=== PATIENT | male | born 1955 | race Caucasian/White ===

== ENCOUNTER 2020-06-02 12:42 | Emergency (ER) | payer MEDICARE, SELFPAY ==
[2020-06-02 14:01] VITALS: BP 116/90; PULSE 113; RESP 18; TEMP 36.8; O2SAT 97
--- NOTE | 2020-06-02 14:38 | XRR_ITS ---
PROCEDURE INFORMATION: Exam: XR Chest, 1 View Exam date and time: 06/02/2020 3:10 PM Age: 64 years old Clinical indication: Cough and dyspnea; Additional info: Dyspnea/cough TECHNIQUE: Imaging protocol: XR of the chest Views: 1 view. COMPARISON: No relevant prior studies available. FINDINGS: Lungs: Unremarkable. No consolidation. Pleural space: Unremarkable. No pleural effusion. No pneumothorax. Heart/Mediastinum: Unremarkable. No cardiomegaly. Bones/joints: Unremarkable. XR/XR chest 1V portable [id number] IMPRESSION: No acute findings.
--- NOTE | 2020-06-02 14:38 | CTR_ITS ---
PROCEDURE INFORMATION: Exam: CT Abdomen And Pelvis With Contrast Exam date and time: 06/02/2020 3:10 PM Age: 64 years old Clinical indication: Abdominal pain; Localized; Right upper quadrant (ruq); Prior surgery; Surgery date: 6+ months; Surgery type: Gb, ivc filter; Patient HX: Recent dx liver CA C/O ruq pain and abd swelling; Additional info: Abd pain TECHNIQUE: Imaging protocol: Computed tomography of the abdomen and pelvis with intravenous contrast. Radiation optimization: All CT scans at this facility use at least one of these dose optimization techniques: automated exposure control; mA and/or kV adjustment per patient size (includes targeted exams where dose is matched to clinical indication); or iterative reconstruction. Contrast material: OMNI 300; Contrast volume: 95 ml; Contrast route: INTRAVENOUS (IV); COMPARISON: No relevant prior studies available. RADIATION DOSE METRICS: Total DLP (mGy-cm): 615.89 FINDINGS: Liver: There is a large 7 x 11 cm size mass in the medial segment left lobe of the liver. There are low-density areas within the mass presumably representing areas of necrosis and this likely represents the patient's known renal cell carcinoma. Liver has nodular contours consistent with cirrhosis. There are other multiple wedge-shaped areas of hypodensity in the right lobe of the liver of uncertain significance, but which could represent areas of infarct, scarring, or additional tumor. There may also be a 3 cm sized slightly hypoenhancing mass in the superior aspect of the left lobe of the liver such as an image 17. Comparison with patient's prior examinations is suggested. Gallbladder and bile ducts: There has been a cholecystectomy. Pancreas: The pancreas is normal. Spleen: The spleen is normal. Adrenals: There is a 3 x 4 cm sized right adrenal mass and a 2.5 x 3.5 cm sized left adrenal mass. These are worrisome for metastatic lesions. Comparison with prior CT examinations is suggested. If there are no previous, recommend adrenal CT. May consider chemical shift MRI (CS-MR). Kidneys and ureters: There is a simple cyst in the left kidney. The right kidney is normal. Stomach and bowel: There is severe mucosal thickening of the entire colon from the cecum through the rectum. This represents nonspecific colitis and differential considerations include infectious and ischemic colitis . Appendix: A normal appendix is identified. Intraperitoneal space: There is a large amount of free intraperitoneal fluid present. Vasculature: An inferior vena cava filter lies in appropriate position. The aorta demonstrates moderate atherosclerotic calcification. There is no evidence of an abdominal aortic aneurysm. There are prominent veins surrounding the gastric cardia and distal esophagus consistent esophageal varices. There is thrombus in the left branch of the portal vein and poor filling of the right branch which may be also partly thrombosed. Lymph nodes: Unremarkable. No enlarged lymph nodes. Bladder: Unremarkable as visualized. Reproductive: Unremarkable as visualized. Bones/joints: Unremarkable. No acute fracture. Soft tissues: Unremarkable. CT/CT abdomen pelvis w con* [id number] IMPRESSION: 1. Grossly abnormal liver with evidence of tumor consistent with a history of liver cancer. 2. Portal vein thrombosis. 3. Severe colitis, differential considerations include ischemic colitis. 4. Ascites 5. Large bilateral adrenal masses worrisome for metastasis. 6. Esophageal varices COMMENTS: Consistent with the [employer]'s Incidental Findings Committee white paper (J Am Niraj Radiol 2018): Any incidental renal lesion less than 1.0 cm or classified as too small to characterize, or any incidental cystic renal lesion characterized as simple-appearing, is likely benign. No follow-up imaging is recommended for these lesions per consensus recommendations based on imaging criteria. Radiation Dose CTDIVOL = (mGy): DLP = 615.89 (mGy-cm)
[2020-06-02 15:24] VITALS: BP 116/86; PULSE 87; RESP 18; O2SAT 97
[2020-06-02 15:25] LABS: Basophils # 0.1 10^3/uL (0.0-0.1); Eosinophils # 1.2 10^3/uL (0.0-0.8); Eosinophils % 9.9 %; Hematocrit 27.1 % (42.0-52.0); Hemoglobin 9.1 g/dL (11.7-16.6); Lymphocytes # 2.3 10^3/uL (0.8-4.8); Lymphocytes % 18.5 %; Mean Corpuscular HGB Conc 33.6 g/dL (30.0-36.0); Mean Corpuscular Hemoglobin 31.4 pg (28.0-34.0); Mean Corpuscular Volume 93.4 fL (80-94); Mean Platelet Volume 11.5 fL (7.4-10.4); Monocytes # 0.6 10^3/uL (0.2-0.9); Neutrophils # 8.13 10^3/uL (1.8-7.7); Neutrophils % 65.3 %; Nucleated Red Blood Cells % 0 %; Platelet Count 302 10^3/cmm (130-400); White Blood Count 12.5 10^3/uL (4.0-10.0)
[2020-06-02 15:35] LABS: INR 1.75 (0.8-1.2)
[2020-06-02 15:36] LABS: Partial Thromboplastin Time 43.3 SECONDS (23.9-36.7)
[2020-06-02 15:45] LABS: Lactic Sepsis W/Reflex 2.6 mmol/L (0.5-2.2)
[2020-06-02 15:46] LABS: Alanine Aminotransferase 206 U/L (0-41); Albumin Level 3.4 g/dL (3.5-5.2); Alkaline Phosphatase 463 IU/L (40-130); Anion Gap 14.9 (5-19); Aspartate Amino Transferase 424 U/L (0-40); Blood Urea Nitrogen 8 mg/dL (8-23); Calcium 9.2 mg/dL (8.5-10.5); Carbon Dioxide 25 mmol/L (22-29); Chloride 97 mmol/L (98-107); Globulin 4.6 g/dL (1.3-4.6); Glomerular Filtration Rate 167.9 mL/min (90-130); Glucose 105 mg/dL (65-115); Lipase 34 U/L (13-60); Osmolality Calculated 270 mOsm/kg (285-295); Potassium 4.9 mmol/L (3.5-5.1); Sodium 132 mmol/L (136-145); Total Bilirubin 5.4 mg/dL (0.15-1.2)
[2020-06-02 15:47] LABS: Ammonia 74 umol/L (16-60)
--- NOTE | 2020-06-02 16:00 | W.ED.ABDPA2 ---
Documented by User: Ed Hoang DO 06/03/20 13:15 HPI - Abdominal Pain General: Chief Complaint: Abdominal Pain Stated Complaint: cancer pt, in pain, [place] Time Seen by Provider: 06/02/20 14:02 History of Present Illness: HPI narrative: 64-year-old male who has a known history of hepatic cancer. Patient does not speak Czech history obtained through the system support analyst. He has previously had multiple labs and imaging done in [place] he has the results available here describes a hepatic cancer that extends into the portal vein there is thrombosis there he also tells me he was on Coumadin at one time and it was stopped recently was advised take aspirin daily as abdomen feels full and he is little bit of right upper quadrant abdominal pain today. He denies any hematochezia hematemesis coffee-ground emesis he is not previously had any GI bleed. He has not seen a doctor in some time he does have a chemotherapy pill that he has been taking MD elicited complaint: abdominal pain Pertinent past history: other (hepatocellular carcinoma) Onset (ago): month(s) Pain Consistency: intermittent Location: RUQ Severity: moderate Quality: cramping Radiation: RUQ Migration to: no migration Exacerbating factors: nothing Relieving factors: nothing Context: history of similar episodes Associated Symptoms: Reports anorexia, bloating, GI cramping, nausea and poor appetite; Denies coffee ground emesis, diarrhea, dyspepsia, fever(s), hematochezia, hematuria, hematemesis, loose stools, melena and vomiting Review of Systems Const: Denies: fever(s) ENMT: Denies: throat pain, ear or mastoid pain, nasal discharge or nasal congestion Card: Denies: chest pain, edema, dyspnea on exertion or orthopnea Resp: Denies: dyspnea, productive cough or non-productive cough GI: Reports: nausea, bloating and GI cramping; Denies: vomiting, hematemesis, coffee ground emesis, diarrhea, hematochezia or melena : Denies: hematuria Skin/Breast: Denies: rash or pruritus PFS ED PFSH: Medical History (Updated 06/03/20 @ 13:14 by Ed Hoang DO) CVA (cerebral vascular accident) Diabetes mellitus Tristan filter in place Hepatocellular carcinoma Hypertension Peripheral artery disease Surgical History (Updated 06/02/20 @ 16:09 by Ed Hoang DO) S/P cholecystectomy 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 Right iliac stenting Social History (Updated 06/02/20 @ 16:10 by Ed Hoang DO) Smoking and tobacco status: never smoked Alcohol intake: never Physical Exam Const: COMMON NORMALS: no acute distress GENERAL APPEARANCE: cooperative and comfortable ORIENTATION/CONSCIOUSNESS: Yes awake, Yes oriented to person, Yes oriented to place and Yes oriented to time HENMT: COMMON NORMALS: normocephalic, atraumatic and hearing grossly normal bilaterally HEAD & SCALP: normocephalic and atraumatic Eye: COMMON NORMALS: Equal, round and reactive pupils present, EOMs intact bilaterally, conjunctivae normal and no scleral icterus CONJUNCTIVA: Yes conjunctivae normal PUPIL: Yes Equal, round and reactive pupils present Neck/C-Spine: COMMON NORMALS: full ROM, no lymphadenopathy, supple and no JVD Lymph: LYMPHATIC: no lymphadenopathy noted and no lymphedema noted Resp: COMMON NORMALS: normal respiratory effort, No retractions, No use of accessory muscles and clear to auscultation bilaterally AUSCULTATION: clear to auscultation bilaterally Cardio: COMMON NORMALS: no JVD, regular rate, regular rhythm and No murmurs present (Cardio) RATE: regular rate RHYTHM: regular rhythm GI: COMMON NORMALS: Soft to palpation and No hepatosplenomegaly present AUSCULTATION: Yes normoactive bowel sounds PALPATION: Yes Soft to palpation, No Tenderness to palpation present (GI), No Guarding due to palpation present (GI) and Yes No hepatosplenomegaly present Extremity: COMMON NORMALS: normal to inspection, capillary refill normal, no clubbing, cyanosis or edema, no calf tenderness and no pedal edema Neuro: SENSORIUM/ORIENTATION: Yes oriented to person, Yes oriented to place and Yes oriented to time Skin: COMMON NORMALS: no rashes or lesions noted GENERAL SKIN EXAM: no rashes or lesions noted Course Vital Signs: Vital signs: Vital Signs Temperature 98.2 F 06/02/20 18:29 Pulse Rate 105 H 06/02/20 18:29 Respiratory Rate 16 06/02/20 18:29 Blood Pressure 120/86 06/02/20 18:29 Pulse Oximetry 96 06/02/20 18:29 MDM - Abdominal Pain MDM Narrative: Medical decision making narrative: Does have a little colitis we will go ahead and start him on Cipro and Flagyl. At this point I think he can still be treated as an outpatient. Clear liquid diet for 48 hours. We will have asked case management to get him set up with oncology as soon as possible will also need a primary care doctor as any worsening or changes symptoms return reviewed with him he does have extensive hepatocellular carcinoma he still has a portal vein thrombosis he also have esophageal varices and there appears to be extension to the renal glands this tumor is quite advanced and likely will require referral to a tertiary care center for review of treatment options. I did ask him to stop his hydrochlorothiazide and his ARB since his blood pressure is borderline low here in the emergency room today. I did teressa the bottles for the patient of the hydrochlorothiazide and the Iser Olsen that they should stop. Discussed final diagnosis and discharge instructions with the system support analyst. Lab Data: Labs: Lab Results 06/02/20 06/02/20 06/02/20 Range/Units 15:16 15:16 15:16 WBC 12.5 H (4.0-10.0) 10^3/ uL RBC 2.90 L (4.1-5.3) 10^6/u L Hgb 9.1 L (11.7-16.6) g/dL Hct 27.1 L (42.0-52.0) % MCV 93.4 (80-94) fL MCH 31.4 (28.0-34.0) pg MCHC 33.6 (30.0-36.0) g/dL RDW 20.0 H (12.1-15.1) % Plt Count 302 (130-400) 10^3/c mm MPV 11.5 H (7.4-10.4) fL Neut % (Auto) 65.3 % Lymph % (Auto) 18.5 % [place] % (Auto) 5.0 % Eos % (Auto) 9.9 % Baso % (Auto) 1.0 % Neut # (Auto) 8.13 H (1.8-7.7) 10^3/u L Lymph # (Auto) 2.3 (0.8-4.8) 10^3/u L [place] # (Auto) 0.6 (0.2-0.9) 10^3/u L Eos # (Auto) 1.2 H (0.0-0.8) 10^3/u L Baso # (Auto) 0.1 (0.0-0.1) 10^3/u L Nucleated RBC % (a uto) 0 % Nucleated RBCs # 0.0 /100WBC PT 21.10 H (10.5-13.3) SECO NDS INR 1.75 H (0.8-1.2) APTT 43.3 H (23.9-36.7) SECO NDS Sodium (136-145) mmol/L Potassium (3.5-5.1) mmol/L Chloride (98-107) mmol/L Carbon Dioxide (22-29) mmol/L Anion Gap (5-19) BUN (8-23) mg/dL Creatinine (0.7-1.2) mg/dL GFR Calculation (90-130) mL/min Glucose (65-115) mg/dL Calculated Osmolal ity (285-295) mOsm/k g Lactic Acid 2.6 H (0.5-2.2) mmol/L Calcium (8.5-10.5) mg/dL Total Bilirubin (0.15-1.2) mg/dL AST (0-40) U/L ALT (0-41) U/L Alkaline Phosphata se (40-130) IU/L Ammonia (16-60) umol/L Total Protein (6.6-8.7) g/dL Albumin (3.5-5.2) g/dL Globulin (1.3-4.6) g/dL Lipase (13-60) U/L Urine Color (Yellow) Urine Appearance (CLEAR) Urine pH (5-7) Ur Specific Gravit y (1.005-1.030) Urine Protein (Negative) Urine Glucose (UA) (Normal) Urine Ketones (Negative) Urine Blood (Negative) Urine Nitrate (Negative) Urine Bilirubin (NEGATIVE) Urine Urobilinogen (Negative) mg/dL Ur Leukocyte Danni ase (Negative) Urine RBC (0-2) /hpf Urine WBC (0-5) /hpf Ur Squamous Epith Cells (0-5) Amorphous Sediment Urine Bacteria (NONE) 06/02/20 06/02/20 06/02/20 Range/Units 15:16 15:16 15:27 WBC (4.0-10.0) 10^3/ uL RBC (4.1-5.3) 10^6/u L Hgb (11.7-16.6) g/dL Hct (42.0-52.0) % MCV (80-94) fL MCH (28.0-34.0) pg MCHC (30.0-36.0) g/dL RDW (12.1-15.1) % Plt Count (130-400) 10^3/c mm MPV (7.4-10.4) fL Neut % (Auto) % Lymph % (Auto) % [place] % (Auto) % Eos % (Auto) % Baso % (Auto) % Neut # (Auto) (1.8-7.7) 10^3/u L Lymph # (Auto) (0.8-4.8) 10^3/u L [place] # (Auto) (0.2-0.9) 10^3/u L Eos # (Auto) (0.0-0.8) 10^3/u L Baso # (Auto) (0.0-0.1) 10^3/u L Nucleated RBC % (a uto) % Nucleated RBCs # /100WBC PT (10.5-13.3) SECO NDS INR (0.8-1.2) APTT (23.9-36.7) SECO NDS Sodium 132 L (136-145) mmol/L Potassium 4.9 (3.5-5.1) mmol/L Chloride 97 L (98-107) mmol/L Carbon Dioxide 25 (22-29) mmol/L Anion Gap 14.9 (5-19) BUN 8 (8-23) mg/dL Creatinine 0.5 L (0.7-1.2) mg/dL GFR Calculation 167.9 H (90-130) mL/min Glucose 105 (65-115) mg/dL Calculated Osmolal ity 270 L (285-295) mOsm/k g Lactic Acid (0.5-2.2) mmol/L Calcium 9.2 (8.5-10.5) mg/dL Total Bilirubin 5.4 H (0.15-1.2) mg/dL AST 424 H (0-40) U/L ALT 206 H (0-41) U/L Alkaline Phosphata se 463 H (40-130) IU/L Ammonia 74 H (16-60) umol/L Total Protein 8.0 (6.6-8.7) g/dL Albumin 3.4 L (3.5-5.2) g/dL Globulin 4.6 (1.3-4.6) g/dL Lipase 34 (13-60) U/L Urine Color Yellow (Yellow) Urine Appearance Clear (CLEAR) Urine pH 5 (5-7) Ur Specific Gravit y 1.020 (1.005-1.030) Urine Protein Trace (Negative) Urine Glucose (UA) Norm (Normal) Urine Ketones 1+ H (Negative) Urine Blood Neg (Negative) Urine Nitrate Negative (Negative) Urine Bilirubin 2+ H (NEGATIVE) Urine Urobilinogen 8 H (Negative) mg/dL Ur Leukocyte Danni ase Negative (Negative) Urine RBC None (0-2) /hpf Urine WBC 0-4 H (0-5) /hpf Ur Squamous Epith Cells 0-4 H (0-5) Amorphous Sediment 2+ Urine Bacteria 1+ H (NONE) Discharge Plan Discharge Patient Disposition: Home Clinical Impression: Hepatocellular carcinoma, 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, Colitis, History of hypertension, Hypotension Condition: Stable Prescriptions: New Zofran 4 mg tablet 4 mg PO Q6H PRN (Reason: nausea and vomiting) Qty: 20 RF: 0 ciprofloxacin HCl 500 mg tablet 500 mg PO Q12H 10 Days Qty: 20 RF: 0 metronidazole 500 mg tablet 500 mg PO BID 10 Days Qty: 20 RF: 0 Discontinued irbesartan 150 mg Tablet 150 mg PO DAILY RF: 0 hydrochlorothiazide 12.5 mg Tablet 12.5 mg PO DAILY RF: 0 No Action aspirin 325 mg Tablet 325 mg PO DAILY RF: 0 Zocor 10 mg Tablet 10 mg PO DAILY RF: 0 gabapentin 300 mg Capsule 300 mg PO BID RF: 0 mirtazapine 15 mg Tablet 15 mg PO BEDTIME RF: 0 oxycodone 5 mg Tablet 5 mg PO QID PRN (Reason: Pain) RF: 0 Nexavar 200 mg Tablet 400 mg PO BID RF: 0 Protonix 40 mg Tablet,Delayed Release (Dr/Ec) 40 mg PO DAILY RF: 0 glipizide-metformin 5-500 mg Tablet 1 tab PO BID RF: 0 Some Kind Of Vitamin See Rx Instructions .ROUTE .COMPLEX RF: 0 Discharge Orders: Discharge Order (Routine); Ordered 06/02/20 Ordered By: Ed Hoang Discharge Diet: Clear Liquid Discharge Activity: Limit activity as instructed Activity Restrictions/Additional Instructions: Clear liquid diet for 48 hours. Case management will call with referral to oncology and help you set up a primary care physician. Interventions: ED Discharge Assessment Last Done: 06/02/20 18:29 ED Charges Last Done: 06/02/20 18:29 Discharge Date/Time: 06/02/20 18:29 Print Language: Armenian Coding Level of Care Code ED Traffic Incident Management Manager for Chg Fwd Exam Comprehensive Documented by User: Jovi Medina DO 06/03/20 05:50 HPI - Abdominal Pain General: Chief Complaint: Abdominal Pain Stated Complaint: cancer pt, in [place], [place] Time Seen by Provider: 06/02/20 14:02 [facility] ED PFSH: Medical History (Updated 06/03/20 @ 13:14 by Ed Hoang DO) CVA (cerebral vascular accident) Diabetes mellitus [place] filter in place Hepatocellular carcinoma Hypertension Peripheral artery disease Surgical History (Updated 06/02/20 @ 16:09 by Ed Hoang DO) S/P cholecystectomy 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 Right iliac stenting Social History (Updated 06/02/20 @ 16:10 by Ed Hoang DO) Smoking and tobacco status: never smoked Alcohol intake: never Course Vital Signs: Vital signs: Vital Signs Temperature 98.2 F 06/02/20 18:29 Pulse Rate 105 H 06/02/20 18:29 Respiratory Rate 16 06/02/20 18:29 Blood Pressure 120/86 06/02/20 18:29 Pulse Oximetry 96 06/02/20 18:29 MDM - Abdominal Pain Lab Data: Labs: Lab Results 07/24/20 07/24/20 07/24/20 Range/Units 15:16 15:16 15:16 WBC 12.5 H (4.0-10.0) 10^3/ uL RBC 2.90 L (4.1-5.3) 10^6/u L Hgb 9.1 L (11.7-16.6) g/dL Hct 27.1 L (42.0-52.0) % MCV 93.4 (80-94) fL MCH 31.4 (28.0-34.0) pg MCHC 33.6 (30.0-36.0) g/dL RDW 20.0 H (12.1-15.1) % Plt Count 302 (130-400) 10^3/c mm MPV 11.5 H (7.4-10.4) fL Neut % (Auto) 65.3 % Lymph % (Auto) 18.5 % [place] % (Auto) 5.0 % Eos % (Auto) 9.9 % Baso % (Auto) 1.0 % Neut # (Auto) 8.13 H (1.8-7.7) 10^3/u L Lymph # (Auto) 2.3 (0.8-4.8) 10^3/u L [place] # (Auto) 0.6 (0.2-0.9) 10^3/u L Eos # (Auto) 1.2 H (0.0-0.8) 10^3/u L Baso # (Auto) 0.1 (0.0-0.1) 10^3/u L Nucleated RBC % (a uto) 0 % Nucleated RBCs # 0.0 /100WBC PT 21.10 H (10.5-13.3) SECO NDS INR 1.75 H (0.8-1.2) APTT 43.3 H (23.9-36.7) SECO NDS Sodium (136-145) mmol/L Potassium (3.5-5.1) mmol/L Chloride (98-107) mmol/L Carbon Dioxide (22-29) mmol/L Anion Gap (5-19) BUN (8-23) mg/dL Creatinine (0.7-1.2) mg/dL GFR Calculation (90-130) mL/min Glucose (65-115) mg/dL Calculated Osmolal ity (285-295) mOsm/k g Lactic Acid 2.6 H (0.5-2.2) mmol/L Calcium (8.5-10.5) mg/dL Total Bilirubin (0.15-1.2) mg/dL AST (0-40) U/L ALT (0-41) U/L Alkaline Phosphata se (40-130) IU/L Ammonia (16-60) umol/L Total Protein (6.6-8.7) g/dL Albumin (3.5-5.2) g/dL Globulin (1.3-4.6) g/dL Lipase (13-60) U/L Urine Color (Yellow) Urine Appearance (CLEAR) Urine pH (5-7) Ur Specific Gravit y (1.005-1.030) Urine Protein (Negative) Urine Glucose (UA) (Normal) Urine Ketones (Negative) Urine Blood (Negative) Urine Nitrate (Negative) Urine Bilirubin (NEGATIVE) Urine Urobilinogen (Negative) mg/dL Ur Leukocyte Danni ase (Negative) Urine RBC (0-2) /hpf Urine WBC (0-5) /hpf Ur Squamous Epith Cells (0-5) Amorphous Sediment Urine Bacteria (NONE) 06/02/20 06/02/20 06/02/20 Range/Units 15:16 15:16 15:27 WBC (4.0-10.0) 10^3/ uL RBC (4.1-5.3) 10^6/u L Hgb (11.7-16.6) g/dL Hct (42.0-52.0) % MCV (80-94) fL MCH (28.0-34.0) pg MCHC (30.0-36.0) g/dL RDW (12.1-15.1) % Plt Count (130-400) 10^3/c mm MPV (7.4-10.4) fL Neut % (Auto) % Lymph % (Auto) % [place] % (Auto) % Eos % (Auto) % Baso % (Auto) % Neut # (Auto) (1.8-7.7) 10^3/u L Lymph # (Auto) (0.8-4.8) 10^3/u L [place] # (Auto) (0.2-0.9) 10^3/u L Eos # (Auto) (0.0-0.8) 10^3/u L Baso # (Auto) (0.0-0.1) 10^3/u L Nucleated RBC % (a uto) % Nucleated RBCs # /100WBC PT (10.5-13.3) SECO NDS INR (0.8-1.2) APTT (23.9-36.7) SECO NDS Sodium 132 L (136-145) mmol/L Potassium 4.9 (3.5-5.1) mmol/L Chloride 97 L (98-107) mmol/L Carbon Dioxide 25 (22-29) mmol/L Anion Gap 14.9 (5-19) BUN 8 (8-23) mg/dL Creatinine 0.5 L (0.7-1.2) mg/dL GFR Calculation 167.9 H (90-130) mL/min Glucose 105 (65-115) mg/dL Calculated Osmolal ity 270 L (285-295) mOsm/k g Lactic Acid (0.5-2.2) mmol/L Calcium 9.2 (8.5-10.5) mg/dL Total Bilirubin 5.4 H (0.15-1.2) mg/dL AST 424 H (0-40) U/L ALT 206 H (0-41) U/L Alkaline Phosphata se 463 H (40-130) IU/L Ammonia 74 H (16-60) umol/L Total Protein 8.0 (6.6-8.7) g/dL Albumin 3.4 L (3.5-5.2) g/dL Globulin 4.6 (1.3-4.6) g/dL Lipase 34 (13-60) U/L Urine Color Yellow (Yellow) Urine Appearance Clear (CLEAR) Urine pH 5 (5-7) Ur Specific Gravit y 1.020 (1.005-1.030) Urine Protein Trace (Negative) Urine Glucose (UA) Norm (Normal) Urine Ketones 1+ H (Negative) Urine Blood Neg (Negative) Urine Nitrate Negative (Negative) Urine Bilirubin 2+ H (NEGATIVE) Urine Urobilinogen 8 H (Negative) mg/dL Ur Leukocyte Danni ase Negative (Negative) Urine RBC None (0-2) /hpf Urine WBC 0-4 H (0-5) /hpf Ur Squamous Epith Cells 0-4 H (0-5) Amorphous Sediment 2+ Urine Bacteria 1+ H (NONE) Discharge Plan Discharge Patient Disposition: Home Clinical Impression: Hepatocellular carcinoma, 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, Colitis, History of hypertension, Hypotension Condition: Stable Prescriptions: New Zofran 4 mg tablet 4 mg PO Q6H PRN (Reason: nausea and vomiting) Qty: 20 RF: 0 ciprofloxacin HCl 500 mg tablet 500 mg PO Q12H 10 Days Qty: 20 RF: 0 metronidazole 500 mg tablet 500 mg PO BID 10 Days Qty: 20 RF: 0 Discontinued irbesartan 150 mg Tablet 150 mg PO DAILY RF: 0 hydrochlorothiazide 12.5 mg Tablet 12.5 mg PO DAILY RF: 0 No Action aspirin 325 mg Tablet 325 mg PO DAILY RF: 0 Zocor 10 mg Tablet 10 mg PO DAILY RF: 0 gabapentin 300 mg Capsule 300 mg PO BID RF: 0 mirtazapine 15 mg Tablet 15 mg PO BEDTIME RF: 0 oxycodone 5 mg Tablet 5 mg PO QID PRN (Reason: Pain) RF: 0 Nexavar 200 mg Tablet 400 mg PO BID RF: 0 Protonix 40 mg Tablet,Delayed Release (Dr/Ec) 40 mg PO DAILY RF: 0 glipizide-metformin 5-500 mg Tablet 1 tab PO BID RF: 0 Some Kind Of Vitamin See Rx Instructions .ROUTE .COMPLEX RF: 0 Discharge Orders: Discharge Order (Routine); Ordered 06/02/20 Ordered By: Ed Hoang Discharge Diet: Clear Liquid Discharge Activity: Limit activity as instructed Activity Restrictions/Additional Instructions: Clear liquid diet for 48 hours. Case management will call with referral to oncology and help you set up a primary care physician. Interventions: ED Discharge Assessment Last Done: 06/02/20 18:29 ED Charges Last Done: 06/02/20 18:29 Discharge Date/Time: 06/02/20 18:29 Print Language: Armenian Coding Level of Care Code ED Traffic Incident Management Manager for Sathya Fwd Exam Comprehensive
[2020-06-02 16:04] LABS: Add Urine Microscopic? YES; Bilirubin Urine 2+ (NEGATIVE); Blood Urine Neg (Negative); Glucose Urine UA Norm (Normal); Ketones Urine 1+ (Negative); Leukocyte Esterase Urine Negative (Negative); Nitrate Urine Negative (Negative); Protein Urine Trace (Negative); Urine Appearance Clear (CLEAR); Urine Color Yellow (Yellow); Urobilinogen Urine 8 mg/dL (Negative); pH Urine 5 (5-7)
[2020-06-02 16:05] LABS: Add Urine Culture? No; Amorphous Sediment Urine 2+; Bacteria Urine 1+; Squamous Epithelial Cell Urine 0-4 (0-5); WBC Urine 0-4 /hpf (0-5)
[2020-06-02] MEDS: iohexol 300 mg/mL 100 mL Btl IV (16:07)
[2020-06-02 17:07] LABS: Reflex Lactate Order REFLEX LACTIC ORDERD
[2020-06-02 18:29] VITALS: BP 120/86; PULSE 105; RESP 16; TEMP 36.8; O2SAT 96
--- NOTE | 2020-06-05 09:14 | PC.SOCIAL ---
Spoke with Derrick by phone regarding referral. She suggests this be sent to [facility] at [phone]. Fax sent with confirmation that this was sent successfully. Oncology will call patient.
--- NOTE | 2020-06-15 14:03 | DCPLANNER ---
manager costing called Sara with oncology, to confirm if an appointment had been scheduled for patient. manager costing spoke with Sara, a follow up appointment had been scheduled for patient for 06.12.20 and patient did attend the appointment.
== END 2020-06-02 18:29 | disposition home or self-care (01) ==
PROVIDERS: Emergency Provider Family Medicine
DX: C22.0 Liver cell carcinoma (principal); C79.70 Secondary malignant neoplasm of unspecified adrenal gland; I10 Essential (primary) hypertension; I95.9 Hypotension, unspecified; Z79.82 Long term (current) use of aspirin; Z86.73 Personal history of transient ischemic attack (TIA), and cerebral infarction without residual deficits; E11.9 Type 2 diabetes mellitus without complications
CPT/HCPCS: 12345; 71045; 74177; 80053; 81001; 81003; 82140; 83605; 83690; 85025; 85610; 85730; 99283; Q9967

== ENCOUNTER 2020-06-09 08:01 | Emergency (ER) | payer MEDICARE, SELFPAY ==
[2020-06-09 08:08] VITALS: BP 137/90; PULSE 117; RESP 18; TEMP 36.8; O2SAT 92; BMI 23.1
[2020-06-09 08:20] VITALS: BP 137/90; PULSE 115; RESP 18; O2SAT 94
--- NOTE | 2020-06-09 08:35 | W.ED.ABDPA2 ---
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 Patient is very uncomfortable. Not able to get established with a primary care provider as of now. Patient does have history of a liver cancer. Is here in the [facility] for treatment. Patient just recently moved here from [place]. MD elicited complaint: abdominal pain Pertinent past history: other (Liver cancer and abdominal distention) Onset (ago): month(s) Pain Consistency: constant Severity: severe Quality: aching Associated Symptoms: Reports bloating and change in bowel habits; Denies chills and fever(s) Review of Systems Const: Denies: fever(s), chills or body aches Eyes: Reports: change in vision and blurry vision ENMT: Reports: throat pain and nasal congestion Card: Denies: chest pain or dyspnea on exertion Resp: Denies: dyspnea, productive cough or non-productive cough GI: Reports: abdominal pain, bloating and change in bowel habits : Denies: difficulty urinating Musc: Denies: extremity pain Skin/Breast: Reports: rash Neuro: Denies: headache(s) Carlos/Lymph: Denies: easy bruising PFSH ED PFSH: Medical History (Updated 06/03/20 @ 13:14 by Ed Hoang DO) CVA (cerebral vascular accident) Diabetes mellitus [place] filter in place Hepatocellular carcinoma Hypertension Peripheral artery disease Surgical History (Updated 06/02/20 @ 16:09 by Ed Hoang DO) S/P cholecystectomy S/P percutaneous transluminal angioplasty ([employer]) with stent placement Right iliac stenting Social History (Updated 06/02/20 @ 16:10 by Ed Hoang DO) Smoking and tobacco status: never smoked Alcohol intake: never Physical Exam Narrative: EXAM NARRATIVE: Patient appears in pain Const: COMMON NORMALS: average body habitus HENMT: COMMON NORMALS: normocephalic HEAD & SCALP: normal to inspection and normocephalic FACE & SINUS: normal facial exam Eye: COMMON NORMALS: negative for no scleral icterus GENERAL EYE: appearance normal, both eyes and all related structures SCLERA: scleral abnormal (Jaundice) Neck/C-Spine: COMMON NORMALS: no JVD Chest: COMMONS NORMALS: normal inspection of the chest Resp: COMMON NORMALS: normal respiratory effort and clear to auscultation bilaterally AUSCULTATION: clear to auscultation bilaterally Cardio: COMMON NORMALS: no JVD, regular rate and regular rhythm RATE: regular rate RHYTHM: regular rhythm GI: INSPECTION: Yes abdominal distension (Marked) AUSCULTATION: Yes Hypoactive bowel sounds present PALPATION: Yes Firmness to palpation present (GI) and Yes Hepatomegaly present PERCUSSION: dullness to percussion RECTAL EXAM: Yes deferred Extremity: COMMON NORMALS: normal to inspection and full ROM Course Vital Signs: Vital signs: Vital Signs Temperature 98.2 F 06/09/20 08:08 Pulse Rate 115 H 06/09/20 08:20 Respiratory Rate 18 06/09/20 08:20 Blood Pressure 137/90 06/09/20 08:20 Pulse Oximetry 94 06/09/20 08:20 Discharge Plan Discharge Prescriptions: No Action aspirin 325 mg Tablet 325 mg PO DAILY RF: 0 Zocor 10 mg Tablet 10 mg PO DAILY RF: 0 gabapentin 300 mg Capsule 300 mg PO BID RF: 0 mirtazapine 15 mg Tablet 15 mg PO BEDTIME RF: 0 oxycodone 5 mg Tablet 5 mg PO QID PRN (Reason: Pain) RF: 0 Nexavar 200 mg Tablet 400 mg PO BID RF: 0 Protonix 40 mg Tablet,Delayed Release (Dr/Ec) 40 mg PO DAILY RF: 0 glipizide-metformin 5-500 mg Tablet 1 tab PO BID RF: 0 Some Kind Of Vitamin See Rx Instructions .ROUTE .COMPLEX RF: 0 Zofran 4 mg tablet 4 mg PO Q6H PRN (Reason: nausea and vomiting) Qty: 20 RF: 0 ciprofloxacin HCl 500 mg tablet 500 mg PO Q12H 10 Days Qty: 20 RF: 0 metronidazole 500 mg tablet 500 mg PO BID 10 Days Qty: 20 RF: 0 Coding Level of Care Code ED Emergency Medical Services Coordinator for Sathya Nixon
--- NOTE | 2020-06-09 08:43 | CT_ITS ---
WS: [id number] CT ABDOMEN PELVIS TECHNIQUE: Contrast-enhanced CT of the abdomen and pelvis with coronal and sagittal reformatted image s. CLINICAL INFORMATION: pain/bloating/hepatic cancer COMPARISON: CT June 02, 2020 DLP: 699.[address] scans at [facility] use at least one of these dose optimization techniques: automat ed exposure control; mA and/or kV adjustment per patient size (includes targeted exams where dose is matched to clinical indication); or iterative reconstruction. FINDINGS: Diffuse heterogeneous hepatic enhancement with diffuse splenomegaly unchanged. Again seen is the larg e heterogeneous enhancing mass in the medial segment left hepatic lobe measuring 11.0 x 7.0 cm. Cirrh otic nodular contour to the liver. Evidence of multifocal hepatic metastatic disease unchanged from p revious. Mild to moderate abdominal ascites more prominent in the pelvis. This is unchanged from prev ious. Induration in the peritoneum suspicious for peritoneal carcinomatosis. This is also unchanged. IVC filter. Stable esophageal gastric varicosities. Portal vein thrombosis with thrombus in the left portal vein. Partial thrombosis of the right portal vein is unchanged in appearance. Splenic vein and SMV are patent. Small right pleural effusion with right basilar atelectasis. Pleural effusion has increased from June 02, 2020. Stable bilateral adrenal masses suspicious for metastatic disease measuring 3 to 4 cm bilaterally. Fa tty atrophy of the pancreas. Normal spleen. Normal caliber abdominal aorta. Aortic calcification. Previously described diffuse pancolitis has improved. Mild diffuse thickening involving the entire co adia consistent with mild residual colitis. No evidence of high-grade obstruction. Notified ANSELMO Ruelas at 06/09/2020 10:[address]/CT abdomen pelvis w con* [id number] IMPRESSION: 1. Previously described acute pancolitis involving the entire colon is improve d from previous with mild persistent pancolitis 2. Diffuse peritoneal induration with mesenteric thickening suspicious for per itoneal carcinomatosis. This is unchanged. 3. Diffusely abnormal liver with cirrhosis and diffuse metastatic disease. Thi s is unchanged. 4. Portal vein thrombosis described above. SMV and splenic vein are patent. 5. Bilateral adrenal metastatic lesions measuring 3 to 4 cm. 6. Small right pleural effusion with right basilar atelectasis. Progressed fro m previous. 7. Mild to moderate abdominal and pelvic ascites is unchanged.
[2020-06-09 08:50] VITALS: BP 125/83; PULSE 114; RESP 18; O2SAT 93
[2020-06-09] MEDS: ondansetron 2 mg/ML SDV 2 mL 4 MG IVP (08:54)
[2020-06-09 08:55] VITALS: RESP 18; O2SAT 93
[2020-06-09] MEDS: morphine 4 mg/mL SDV 1 mL IVP (08:55)
[2020-06-09 09:05] LABS: Basophils # 0.1 10^3/uL (0.0-0.1); Basophils % 1.1 %; Eosinophils # 1.5 10^3/uL (0.0-0.8); Eosinophils % 12.8 %; Hemoglobin 7.5 g/dL (11.7-16.6); Lymphocytes # 1.5 10^3/uL (0.8-4.8); Mean Corpuscular HGB Conc 32.6 g/dL (30.0-36.0); Mean Corpuscular Hemoglobin 30.7 pg (28.0-34.0); Mean Corpuscular Volume 94.3 fL (80-94); Mean Platelet Volume 11.2 fL (7.4-10.4); Monocytes # 0.7 10^3/uL (0.2-0.9); Neutrophils # 7.71 10^3/uL (1.8-7.7); Neutrophils % 66.8 %; Nucleated Red Blood Cells % 0 %; Platelet Count 317 10^3/cmm (130-400); Red Blood Count 2.44 10^6/uL (4.1-5.3); Red Cell Distribution Width 20.7 % (12.1-15.1); White Blood Count 11.5 10^3/uL (4.0-10.0)
[2020-06-09 09:21] LABS: Alanine Aminotransferase 152 U/L (0-41); Albumin Level 3.1 g/dL (3.5-5.2); Alkaline Phosphatase 344 IU/L (40-130); Anion Gap 15.5 (5-19); Aspartate Amino Transferase 457 U/L (0-40); Blood Urea Nitrogen 7 mg/dL (8-23); Carbon Dioxide 22 mmol/L (22-29); Chloride 99 mmol/L (98-107); Globulin 4.7 g/dL (1.3-4.6); Glomerular Filtration Rate 167.9 mL/min (90-130); Glucose 78 mg/dL (65-115); Osmolality Calculated 269 mOsm/kg (285-295); Potassium 4.5 mmol/L (3.5-5.1); Sodium 132 mmol/L (136-145); Total Protein 7.8 g/dL (6.6-8.7)
[2020-06-09 09:34] LABS: Total Bilirubin 7.1 mg/dL (0.15-1.2)
[2020-06-09] MEDS: iohexol 300 mg/mL 100 mL Btl IV (10:02)
[2020-06-09 10:52] VITALS: BP 134/90; PULSE 119; O2SAT 92
[2020-06-09 13:09] VITALS: BP 124/83; PULSE 118; RESP 16; TEMP 36.8; O2SAT 92
--- NOTE | 2020-06-12 08:48 | PC.SOCIAL ---
Spoke with Sara at Dr. Vigil office, she stated that she will make sure that the patient is on the schedule to be seen. He was already an assigned patient there. At that time he was placed in [facility] as Jairon, this was a mistake. His last name is Emmanuel. She also stated that last time they attempted to call, both the patient and the sons number was disconnected. I told Sara to let me know if they are not able to reach the patient, we will find the right number for them.
== END 2020-06-09 13:09 | disposition home or self-care (01) ==
PROVIDERS: Emergency Provider Nurse Practitioner Family
DX: R10.9 Unspecified abdominal pain (principal); Z79.82 Long term (current) use of aspirin; Z79.84 Long term (current) use of oral hypoglycemic drugs; Z86.73 Personal history of transient ischemic attack (TIA), and cerebral infarction without residual deficits; E11.9 Type 2 diabetes mellitus without complications; I10 Essential (primary) hypertension; Z85.05 Personal history of malignant neoplasm of liver
CPT/HCPCS: 12345; 74177; 80053; 85025; 96374; 96375; 99282; 99283; J2270; J2405; Q9967

== ENCOUNTER 2020-06-12 16:07 | Outpatient (CLI) | payer MEDICARE, SELFPAY ==
[2020-06-12 17:58] LABS: Basophils # 0.1 10^3/uL (0.0-0.1); Basophils % 1.1 %; Eosinophils # 1.3 10^3/uL (0.0-0.8); Hematocrit 25.5 % (42.0-52.0); Hemoglobin 8.4 g/dL (11.7-16.6); Lymphocytes # 1.6 10^3/uL (0.8-4.8); Lymphocytes % 13.9 %; Mean Corpuscular HGB Conc 32.9 g/dL (30.0-36.0); Mean Corpuscular Hemoglobin 30.7 pg (28.0-34.0); Mean Corpuscular Volume 93.1 fL (80-94); Mean Platelet Volume 10.8 fL (7.4-10.4); Monocytes # 0.7 10^3/uL (0.2-0.9); Monocytes % 6.2 %; Neutrophils # 7.87 10^3/uL (1.8-7.7); Neutrophils % 67.4 %; Nucleated Red Blood Cells % 0 %; Platelet Count 296 10^3/cmm (130-400); Red Blood Count 2.74 10^6/uL (4.1-5.3); White Blood Count 11.7 10^3/uL (4.0-10.0)
[2020-06-12 18:15] LABS: Alanine Aminotransferase 140 U/L (0-41); Albumin Level 3.3 g/dL (3.5-5.2); Alkaline Phosphatase 346 IU/L (40-130); Anion Gap 15.3 (5-19); Aspartate Amino Transferase 430 U/L (0-40); Blood Urea Nitrogen 6 mg/dL (8-23); Calcium 8.2 mg/dL (8.5-10.5); Carbon Dioxide 23 mmol/L (22-29); Chloride 93 mmol/L (98-107); Glomerular Filtration Rate 217.3 mL/min (90-130); Glucose 111 mg/dL (65-115); Osmolality Calculated 260 mOsm/kg (285-295); Potassium 4.3 mmol/L (3.5-5.1); Sodium 127 mmol/L (136-145); Total Protein 7.3 g/dL (6.6-8.7)
[2020-06-12 18:48] LABS: Total Iron Binding Capacity 176 mcg/dl; Unsaturated Iron Binding 142 ug/dL (112-347)
[2020-06-12 19:16] LABS: Iron 34 ug/dL (59-158); Percent Saturation 19.3 % (20-50); Total Bilirubin 8.5 mg/dL (0.15-1.2)
--- NOTE | 2020-06-16 11:13 | ONC CON_ITS ---
Dr. Musa Chandler Patient Note Patient: Jarret Chowdhury Unit #: [id number]: 1955 Dicatated By: Sarthak Vigil M.D.Date of Visit: Jun 12, 2020 Onc MED New Patient/Consult Referring Physician: Chief Complaint: Hepatocellular carcinoma. History of Present Illness: This is a 64-year-old man with hepatocellular carcinoma in the setting of underlying liver cirrhosis. This patient is from [place], where his received all of his previous medical care. I have limited records available. According to the patient's son he was diagnosed with hepatitis somewhere around 1999, reportedly hepatitis A, B, and C. He did have treatment with interferon. Despite that, he went on to develop liver cirrhosis. His quantitative hepatitis C PCR in August 2019 was negative. His EGD in September 2019 did show evidence for grade B esophageal varices. He had then been found to have a large mass in the right lobe of the liver and a markedly elevted AFP level, greater than 10,000 ng/mL. CT-guided core needle biopsy on 01/04/2020 was consistent with hepatocellular carcinoma. The tumor cells were noted to be HepPar 1+, [place]-3 positive, and CK7 negative. Following consultation with Ramiro Khan on 01/24/2020 he began treatment with sorafenib 400 [address] abdomen/pelvis on 02/29/2020 reported cirrhotic appearance to the liver with complete thrombosis of the bilateral portal veins and distal main portal vein. An area of central necrosis was seen within the medial aspect of hepatic segment 5. The overall appearance was consistent with a large infiltrative hepatocellular carcinoma with intravascular extension of tumor. Over the next several months his family had noticed a progressive decline in his overall condition and within the past several weeks he had, here to live with his son. During this time he is seen Dr. Hylton and he has also been to the emergency room on [address] abdomen/pelvis on 05/16/2406/02/2020 showed a 7 x 11 cm mass involving the medial segment left lobe of the liver. The liver was noted to have a nodular contour consistent with cirrhosis. Bilateral adrenal masses were noted, worrisome for metastatic lesions. There was noted to be severe mucosal thickening of the entire colon from the cecum through the rectum. The appearance was consistent with nonspecific colitis, with the differential including infectious and ischemic colitis. A large amount of free intraperitoneal fluid was present. Prominent veins surrounding the gastric cardia and distal esophagus appeared consistent with esophageal varices. Thrombus was noted in the left branch of the portal vein and the right portal vein also appeared partly thrombosed. He did start treatment with ciprofloxacin and metronidazole. He has continued to show decline in his general condition. He now has very limited activity with a ECOG score of 3. His appetite is very poor. He has not had fever or night sweats. He has had increasing pain in the abdominal area, mainly the right upper quadrant. He has had some nausea and vomiting. He also has had acid reflux symptoms. He has been having frequent, small stools which his son reports as looking black. He has dark urine, and they also have become aware that his eyes look yellow. He has not been getting any significant pain relief with 5 mg oxycodone tablets, but he has been getting some benefit with the dosage increased to 10 mg. He apparently is still taking the sorafenib, but with the dosage recently reduced to 200 mg twice daily. Past Medical History: Mr. Benitez's medical history includes cerebral vascular accident, diabetes mellitus, gastroesophageal reflux disease, hepatocellular carcinoma, hepatitis A, B, and C with hepatic cirrhosis, hypertension, and history of thromboembolic disease. Past Surgical History: Mr. Benitez's surgical/procedural history includes back surgery x 2, cholecystectomy, placement of zulma filter, and percutaneous transluminal angioplasty with stent placement. Medications: Aspirin 1 Tablet (of 325 mg) Oral daily, Ativan 1 Tablet (of 1 mg) Oral t.i.d. PRN, Ciprofloxacin HCl 1 Tablet (of 500 mg) Oral q 12 hours, Gabapentin 1 Capsule (of 300 mg) Oral b.i.d., glipiZIDE-metFORMIN HCl 1 Tablet Oral b.i.d., metroNIDAZOLE 1 Tablet (of 500 mg) Oral b.i.d., Mirtazapine 1 Tablet (of 15 mg) Oral at bedtime, NexAVAR 1 Tablet (of 400 mg) Oral b.i.d., Ondansetron HCl 1 Tablet (of 4 mg) Oral q 6 hours PRN, oxyCODONE HCl 1 Tablet (of 10 mg) Oral four times a day PRN, Pantoprazole Sodium 1 Tablet (of 40 mg) Tablet, enteric coated Oral daily, Simvastatin 1 Tablet (of 10 mg) Oral daily Allergies: No Known Allergies. Social History: Mr. Benitez is . He smoked in the past and he also had significant alcohol use in the past. He quit both 20 years ago. Family History: Not obtained. Review Of Symptoms: Constitutional - He has been feeling progressivel worse. He is mainly sedentary at home. His appetite is very poor. No fever, or night sweats. ECOG score is 3, Eyes - Family has noticed that his eyes look yellow, ENMT - No sinus congestion/drainage. His mouth is sore. He had dry throat. No difficulty swallowing, Hematologic/Lymphatic - No abnormal bruising or bleeding, Respiratory - No shortness of breath. No cough. No pleuritic pain or hemoptysis, Cardiovascular - No angina pain. No palpitations, Gastrointestinal - He has nausea with vomiting. He has had acic reflux. He has frequent, small stools, and his son indates that the stools look black stools. He has pain in the right upper abdomen and epigastric area, Genitourinary (M) - No dysuria or hematuria. He has urinary frequency. No urgency or incontinence. His urine is very dark in color, Musculoskeletal - No joint or bone pain, Integumentary - No skin rash, Neurologic - No headache. No focal neurologic symptoms, Psychiatric - No anxiety or depression. He does not sleep well. Vital Signs: Performed on Jun 12, 2020 16:18: 9, 23.17, 1.66 sq.m, 64.00 in, 96 %, 120 /min (HIGH), 24 /min, 123/83 mm(hg), 98.8 F, and 135.0 lbs (HIGH). Physical Examination: Constitutional - He appears generally weak and frail, Eyes - He is overtly icteric. Conjunctiva clear, ENMT - No lesions noted in the oral cavity, Neck - No mass or thyromegaly, Hematologic/Lymphatic - No cervical, clavicular, or axillary adenopathy, Respiratory - Lungs are clear with good air movement bilaterally, Cardiovascular - Heart rhythm is regular. There is no murmur, gallop, or rub noted, Abdomen - Distended with ascites. He is very tender in the upper abdomen, particularly on the right side. I was not able to palpate the liver or spleen, but the exam was very limited because of the tenderness. There is no abdominal mass noted. There is no inguinal adenopathy, Back/Spine - No spine or CVA tenderness noted, Extremities - There is mild lower extremity edema, Integumentary - No rashes. No suspicious skin lesions noted, Neurologic - No focal neurologic deficits noted. Lab/Imaging: His CBC from 06/09/2020 showed hemoglobin 7.5 g with white blood cell count 11,500 and platelet count 317,000. Comprehensive metabolic profile showed normal renal function with BUN 7 and creatinine 0.5 mg/dL. Total bilirubin was 7.1 mg/dL with SGOT 457 U/L, SGPT 152 U/L, and alkaline phosphatase 344/130 IU/L. Albumin was mildly decreased at 3.1 g/dL. Impression: 1. Patient with hepatocellular carcinoma. This appears to be locally advanced with associated portal vein thrombosis and there is also suspected metastatic involvement in the adrenal glands. 2. He has underlying liver cirrhosis with associated ascites and esophageal varices. He now has become overtly jaundiced. 3. He has recent CT evidence of pancolitis. 4. He has become significantly anemic. It is uncertain to what extent that may be due to GI blood loss, to his treatment, or to the underlying malignancy. 5. He apparently also has a prior history of thromboembolic disease for which he had previously been on anticoagulation with warfarin. He has an inferior vena cava filter in place. 6. He was previously treated with interferon for hepatitis C. Plan: The laboratory findings and the CT findings were reviewed with the patient through his son. At this point he has very advanced liver disease which I think is due to both the hepatocellular carcinoma and the underlying cirrhosis. The latter may actually be more significant, though it is a moot point. Some component of his illness may very well be due to the sorafenib, which clearly is not benefiting him. It is unclear to what extent the anemia may be due to GI blood loss or to other factors. In any case, his overall condition and prognosis are extremely poor. At this point I am offering him the option to have a PRBC transfusion. I advised him to stop the sorafenib, the aspirin, and the glipizide/metformin. They for now he will continue the oxycodone at the 10 mg dosage, but that can be further adjusted as necessary. I did emphasize to the son that the major focus of his treatment now will be symptomatic management, and to that end he would be appropriate for hospice care. If he does show some improvement in his overall clinical status, he could potentially be eligible for a trial of immunotherapy, but at this point that appears to be a very unlikely scenario. Signed By: Sarthak Vigil M.D. <<Signature on File>>
== END 2020-06-12 16:08 | disposition home or self-care (01) ==
LOC: ONCMED 16:07
PROVIDERS: Visit Provider Internal Medicine Medical Oncology
DX: C22.0 Liver cell carcinoma (principal); K74.60 Unspecified cirrhosis of liver; D64.9 Anemia, unspecified; I81 Portal vein thrombosis; R18.8 Other ascites; K51.00 Ulcerative (chronic) pancolitis without complications; Z86.19 Personal history of other infectious and parasitic diseases; Z79.01 Long term (current) use of anticoagulants; Z79.891 Long term (current) use of opiate analgesic
CPT/HCPCS: 36415; 80053; 82105; 83540; 83550; 85025; 85610; 99205